=== PATIENT | female | born 1960 | race Caucasian/White ===

== ENCOUNTER 2017-09-15 08:22 | Day surgery (SDC) | payer BC ==
[~2017-09-15 08:22] MED LIST: Ketorolac 30 MG/ML SDV ONE; Lactated Ringers 1,000 ML IV SCH; Lidocaine 2% 5 ML SDV ONE; Midazolam 1 MG/ML 2 ML SDV ONE; Ondansetron 4 MG/2 ML SDV ONE; Propofol 200 MG/20 ML SDV ONE; Sodium Chloride 0.9% 10 ML Syringe FLUSH PRN; Sodium Chloride 0.9% 2.5 ML Syringe FLUSH PRN; fentaNYL 100 MCG/2 ML SDV ONE
--- NOTE | 2017-09-15 09:12 | PCM.PREANE ---
Preanesthetic Assessment - Anesthesia/Transfusion/Family Hx Anesthesia History: Prior Anesthesia Without Reaction Family History of Anesthesia Reaction: No Transfusion History: No Prior Transfusion(s) - Review of Systems General: No Symptoms Pulmonary: No Symptoms Cardiovascular: No Symptoms Gastrointestinal: No Symptoms Neurological: No Symptoms Other: Reports: None - Physical Assessment NPO Status Date: 09/14/17 O2 Sat by Pulse Oximetry: 99 Respiratory Rate: 16 Vital Signs: Last Vital Signs Temp 36.4 C 09/15/17 08:31 Pulse 78 09/15/17 08:31 Resp 16 09/15/17 08:31 BP 169/96 H 09/15/17 08:31 Pulse Ox 99 09/15/17 08:31 Height: 1.54 m Weight: 66.224 kg ASA Class: 2 Mental Status: Alert & Oriented x3 Airway Class: Mallampati = 1 Dentition: Reports: Normal Dentition Lungs: Clear to Auscultation, Normal Respiratory Effort Cardiovascular: Regular Rate, Regular Rhythm - Allergies Allergies/Adverse Reactions: Allergies Allergy/AdvReac Type Severity Reaction Status Date / Time acetaminophen [From Percocet] Allergy Nausea and Verified 09/02/17 07:56 Vomiting oxycodone [From Percocet] Allergy Nausea and Verified 09/02/17 07:56 Vomiting - Anesthesia Plan Pre-Op Medication Ordered: None - Acknowledgements Anesthesia Type Planned: General Anesthesia Pt an Appropriate Candidate for the Planned Anesthesia: Yes Alternatives and Risks of Anesthesia Discussed w Pt/Guardian: Yes Pt/Guardian Understands and Agrees with Anesthesia Plan: Yes PreAnesthesia Questionnaire HEENT History: Reports: Other (See Below) Other HEENT History: reading glasses, has hearing aids but does not always wear them, has permanent wire retainer on lower teeth Cardiovascular History: Reports: Blood Clots/VTE/DVT Other Cardiovascular History: Blood clot rt leg 2006 Genitourinary History: Reports: None 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: Musculoskeletal History: Reports: Osteoarthritis Neurological History: Reports: Migraines Psychiatric History: Reports: None Endocrine/Metabolic History: Reports: None Hematologic History: Reports: None Immunologic History: Reports: None Oncologic (Cancer) History: Reports: None Dermatologic History: Reports: None - Past Surgical History Head Surgeries/Procedures: Reports: None Other HEENT Surgeries/Procedures: bottom retainer wire, GI Surgical History: Reports: Colonoscopy, EGD Female Surgical History: Reports: Section Other Female Surgeries/Procedures: breast reduction - SUBSTANCE USE Smoking Status *Q: Never Smoker Recreational Drug Use History: No - HOME MEDS Home Medications: Home Meds Ascorbic Acid [Vitamin C] 1 tab PO DAILY 09/02/17 [History] Cholecalciferol (Vitamin D3) [Vitamin D3] 1 tab PO DAILY 09/02/17 [History] Cyanocobalamin (Vitamin B-12) [Vitamin B-12] 1 tab PO BID 09/02/17 [History] Multivitamin [Multivitamins] 1 tab PO DAILY 09/02/17 [History] ZOLMitriptan [Zomig] 0.5 tab PO ASDIRECTED PRN 09/02/17 [History] - CURRENT (IN HOUSE) MEDS Current Meds: Current Medications Lactated Ringer's (Ringers, Lactated) 1,000 mls @ 125 mls/hr IV ASDIRECTED NIRAJ Last Admin: 09/15/17 08:38 Dose: 125 mls/hr Sodium Chloride (Saline Flush) 10 ml FLUSH ASDIRECTED PRN PRN Reason: Keep Vein Open Sodium Chloride (Saline Flush) 2.5 ml FLUSH ASDIRECTED PRN PRN Reason: Keep Vein Open Discontinued Medications Fentanyl (Sublimaze) Confirm Administered Dose 200 mcg .ROUTE .STK-MED ONE Stop: 09/15/17 07:45 Ketorolac Tromethamine (Toradol) Confirm Administered Dose 30 mg .ROUTE .STK- MED ONE Stop: 09/15/17 07:45 Lidocaine (Xylocaine-Mpf 2%) Confirm Administered Dose 10 ml .ROUTE .STK-MED ONE Stop: 09/15/17 07:44 Midazolam HCl (Versed 1 Mg/Ml) Confirm Administered Dose 2 mg .ROUTE .STK-MED ONE Stop: 09/15/17 07:45 Ondansetron HCl (Zofran) Confirm Administered Dose 4 mg .ROUTE .STK-MED ONE Stop: 09/15/17 07:45 Propofol (Diprivan 20 Ml) Confirm Administered Dose 400 mg .ROUTE .STK-MED ONE Stop: 09/15/17 07:45
[2017-09-15] MEDS ORDERED: ePHEDrine 50 MG/ML SDV ONE (10:59)
[2017-09-15] MEDS ORDERED: Lactated Ringers 1,000 ML IV SCH (11:30)
--- NOTE | 2017-09-15 11:35 | PCM.OPNOTE ---
- General Post-Op/Procedure Note Date of Surgery/Procedure: 09/15/17 Operative Procedure(s): Hysteroscopy, polypectomy with Dilatation and curettage Findings: Anteverted mobile uterus, sounded to 8cm. No adnexal masses. Solitary endometrial polyp. Atrophic endometrium Pre Op Diagnosis: Postmenopausal bleeding. Endometrial polyp Post-Op Diagnosis: Same Anesthesia Technique: General LMA Primary Surgeon: Darcie Morales Pathology: Endometrial polyp ECC and Endometrial curettings Fluid Replacement, Intraop: 1,000 Output, Urine Amount: 50 EBL in mLs: 10 Complications: None Condition: Good
[2017-09-15] MEDS ORDERED: fentaNYL 100 MCG/2 ML SDV IVPUSH PRN (11:36)
--- NOTE | 2017-09-15 12:48 | PCM.POSTAN ---
POST ANESTHESIA ASSESSMENT - MENTAL STATUS Mental Status: Alert - VITAL SIGNS Pulse Rate: 73 SaO2: 96 Resp Rate: 16 Blood Pressure: 138/72 Temperature: 37.5 C - RESPIRATORY Respiratory Status: Respiratory Rate WNL, Airway Patent, O2 Saturation Stable - CARDIOVASCULAR CV Status: Pulse Rate WNL, Blood Pressure Stable - GASTROINTESTINAL GI Status: No Symptoms - PAIN Pain Score: 0 - POST OP HYDRATION Hydration Status: Adequate & Stable (Doing well.)
--- NOTE | 2017-09-15 13:42 | PCM48HPAN ---
Post Anesthesia Note - EVALUATION WITHIN 48HRS OF ANESTHETIC Vital Signs in Normal Range: Yes Patient Participated in Evaluation: Yes Respiratory Function Stable: Yes Airway Patent: Yes Cardiovascular Function Stable: Yes Hydration Status Stable: Yes Pain Control Satisfactory: Yes Nausea and Vomiting Control Satisfactory: Yes Mental Status Recovered: Yes Pulse Rate: 73 Resp Rate: 14 Temperature: 37.5 C Blood Pressure: 138/72 - COMMENTS/OBSERVATIONS Free Text/Narrative:: Doing well. No issues noted. Discharged ambulating.
--- NOTE | 2017-09-15 14:14 | OR ---
SURGEON: Darcie Morales MD DATE OF PROCEDURE: 09/15/2017 PREOPERATIVE DIAGNOSES: 1. Postmenopausal bleeding. 2. Endometrial polyp. POSTOPERATIVE DIAGNOSES: 1. Postmenopausal bleeding. 2. Endometrial polyp. ANESTHESIA: General LMA. ESTIMATED BLOOD LOSS: Minimal. COMPLICATIONS: None. DISPOSITION: Stable to recovery room. PATHOLOGY: Endometrial polyp, Endometrial and Endocervical curettings. FINDINGS: Mobile anteverted uterus, sounded to 8 cm. No cervical lesions visualized and no adnexal masses palpated. Hysteroscopic findings revealed a solitary endometrial polyp. The endometrium was, otherwise, atrophic in appearance. Both fallopian tubes and ostia were visualized. BRIEF HISTORY: The patient is a 57-year-old lady who presented to the office with a history of postmenopausal bleeding. Sonohysterogram showed a large endometrial polyp measuring about 3 x 8 cm, and office endometrial biopsy was reported as benign. I reviewed the sonohysterogram findings with the patient. Recommended to proceed with a hysteroscopic polypectomy. The patient accepted the recommendation. The risks of the procedure were discussed with the patient in detail including but not limited to bleeding; infection; injury to the uterus, cervix, and other surrounding organs. An appropriate surgical consent was obtained DESCRIPTION OF PROCEDURE: The patient was taken to the operating room where she underwent induction of general anesthesia without difficulty. After adequate level of anesthesia, she was placed in dorsal lithotomy position, prepped and draped in the usual sterile fashion for vaginal procedure. The bladder was emptied. A time-out was held. SCDs were in place. Examination under anesthesia revealed the aforementioned findings. A bivalve speculum was then placed in the vagina, and the anterior lip of the cervix was grasped with a single-tooth tenaculum. The uterine cavity was sounded to a depth of 8 cm. An ECC was performed, and a sample was collected with a Cytobrush. The cervical os was then serially dilated up to number #7 Hegar dilator and a 6.5-mm MyoSure Operative hysteroscope was inserted into the uterine cavity under direct visualization using normal saline as a distention media. Upon entering the uterine cavity, the aforementioned pathology was noted. The outflow channel of the MyoSure device was then removed under direct visualization, and the MyoSure tissue retrieval device was inserted through this channel. The retriever device was then aligned along the polyp and the polyp was resected completed easily. A survey of the uterine cavity post resection revealed no uterine wall injury. The MyoSure hysteroscopic device was then removed from the cavity. Gentle endometrial curetting was then performed. Once this was completed, all the instruments were removed from the patient's vagina, and the area on the cervix where the single- tooth tenaculum was placed was found to be hemostatic. All sponge and instrument counts were correct. Input and output of the normal saline were recorded by the MatchpinSure fluid management system. The deficit was recorded as 315. The patient was taken to the recovery room in a stable condition. MARCELA / YOSSI /[id number]
== END 2017-09-15 13:58 | disposition home or self-care (01) ==
LOC: MW.SDS 08:22
PROVIDERS: ATTEND Obstetrics & Gynecology
DX: N84.0 Polyp of corpus uteri (principal); E78.00 Pure hypercholesterolemia, unspecified; F32.9 Major depressive disorder, single episode, unspecified; K21.9 Gastro-esophageal reflux disease without esophagitis; Z88.8 Allergy status to other drugs, medicaments and biological substances; Z79.899 Other long term (current) drug therapy
CPT/HCPCS: 36415; 58558; 85025; J1885; J2250; J2405; J3010; J7120; 00952; 88305; J2704